=== PATIENT | female | born 2005 | race Caucasian/White ===

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

== ENCOUNTER 2023-03-26 18:07 | Emergency (ER) | payer SELFPAY ==
[2023-03-26 18:19] VITALS: BP 135/81; PULSE 109; RESP 16; TEMP 36.9; O2SAT 97; BMI 37.5
--- NOTE | 2023-03-26 18:44 | XRR_ITS ---
PROCEDURE INFORMATION: Exam: XR Chest Exam date and time: 03/26/2023 7:50 PM Age: 17 years old Clinical indication: Pain; Chest pressure; Additional info: Chest pain TECHNIQUE: Imaging protocol: Radiologic exam of the chest. Views: 1 view. COMPARISON: No relevant prior studies available. FINDINGS: Lungs: Unremarkable. No consolidation. Pleural spaces: Unremarkable. No pleural effusion. No pneumothorax. Heart/Mediastinum: Unremarkable. No cardiomegaly. Bones/joints: Unremarkable. XR/XR chest 1V portable [id number] IMPRESSION: No acute findings.
--- NOTE | 2023-03-26 18:44 | ECG_ITS ---
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 Measurements Intervals [place] Rate: 110 P: 21 NC: 143 QRS: 64 QRSD: 93 T: -6 QT: 335 QTc: 454 Interpretive Statements SINUS TACHYCARDIA NONSPECIFIC T-WAVE ABNORMALITY No previous ECG available for comparison Electronically Signed On 03-26-2023 19:06:15 PNEUMATIC TUBE OPERATOR by Mary Gonzalez M.D. [id number]
[2023-03-26 19:17] LABS: Basophils # 0.1 10^3/uL (0.0-0.1); Basophils % 0.5 %; Eosinophils # 0.3 10^3/uL (0.0-0.8); Eosinophils % 2.4 %; Hematocrit 44.9 % (36-47); Lymphocytes # 3.3 10^3/uL (1.5-6.5); Lymphocytes % 25.5 %; Mean Corpuscular HGB Conc 31.6 g/dL (30-55); Mean Corpuscular Volume 82.2 fl (85-98); Monocytes % 7.6 %; Neutrophils # 8.33 10^3/uL (1.8-8.0); Neutrophils % 63.7 %; Nucleated Red Blood Cells % 0 %; Platelet Count 465 10^3/cmm (157-399); Red Blood Count 5.46 10^6/uL (3.85-5.65); Red Cell Distribution Width 13.8 % (12.1-15.1); White Blood Count 13.08 10^3/uL (4.5-13.0)
[2023-03-26 19:30] LABS: Troponin(5th) Baseline < 6 ng/L (0-10)
[2023-03-26 19:39] LABS: Alanine Aminotransferase 21 U/L (0-33); Albumin Level 4.3 g/dL (3.5-5.2); Alkaline Phosphatase 119 U/L (35-105); Anion Gap 19.2 (5-19); Aspartate Amino Transferase 22 U/L (0-32); Blood Urea Nitrogen 7 mg/dL (6-20); Calcium 9.6 mg/dL (8.5-10.5); Carbon Dioxide 19 mmol/L (22-29); Chloride 103 mmol/L (98-107); Globulin 3.8 g/dL (1.3-4.6); Glomerular Filtration Rate 128.8 mL/min (90-130); Glucose 83 mg/dL (65-115); Osmolality Calculated 281 mOsm/kg (285-295); Potassium 4.2 mmol/L (3.5-5.1); Sodium 137 mmol/L (136-145); Total Bilirubin 0.3 mg/dL (0.15-1.2); Total Protein 8.1 g/dL (6.6-8.7)
--- NOTE | 2023-03-26 19:44 | PC.NURSE ---
Initial EKG done in triage.
[2023-03-26 19:52] VITALS: BP 139/98; PULSE 90; RESP 16; O2SAT 97
--- NOTE | 2023-03-26 19:52 | PC.NURSE ---
RN ASSUMED CARE OF PATIENT AT THIS TIME
--- NOTE | 2023-03-26 20:03 | W.ED.CHESTPA ---
HPI - Chest Pain General: Chief Complaint: Chest Pain Stated Complaint: Chest Pains\ Time Seen by Provider: 03/26/23 19:17 History of Present Illness: Patient presents to the ER with substernal nonradiating chest pain every time she take a big deep breath. This all started when she was pushing her car while is out of gas. When she took a big deep breath it felt like she was breathing and glass. Patient states she has had these episodes before. Patient says she denies any cardiac or respiratory history. Patient says she is not having either 1 of these episodes now and is currently back to normal. Review of Systems General: Reports: 10 or more systems reviewed and unremarkable except in HPI and below Physical Exam Const: COMMON NORMALS: no acute distress, average body habitus, patient oriented x3, no limitations, healthy appearing, alert and well nourished HENMT: COMMON NORMALS: normocephalic, atraumatic, hearing grossly normal bilaterally, external ears normal, Normal external nose present, moist oral mucous membranes and oropharynx normal HEAD & SCALP: normocephalic and atraumatic NOSE: Normal external nose present EXTERNAL EAR: Yes external ears normal Neck/C-Spine: COMMON NORMALS: full ROM, no lymphadenopathy, supple, no meningeal signs, no JVD and Thyroid normal THYROID: Thyroid normal Chest: COMMONS NORMALS: normal inspection of the chest and normal palpation of entire chest wall Resp: COMMON NORMALS: normal respiratory effort, No retractions, No use of accessory muscles and clear to auscultation bilaterally AUSCULTATION: clear to auscultation bilaterally Cardio: COMMON NORMALS: no JVD Neuro: COMMON NORMALS: patient oriented x3 SENSORIUM/ORIENTATION: Yes alert MENINGEAL SIGNS: Yes no meningeal signs Course Vital Signs: Vital signs: Vital Signs Temperature 98.4 F 03/26/23 18:19 Pulse Rate 87 03/26/23 20:06 Respiratory Rate 20 H 03/26/23 20:06 Blood Pressure 144/78 03/26/23 20:06 Pulse Oximetry 96 03/26/23 20:06 Oxygen Delivery Me thod Room Air 03/26/23 19:52 MDM - Chest Pain Medical Decision Making Patient presents to the ER with complaining of chest pain and when she breathes and feels like she is breathing and glass. Patient was worked up in a standard chest pain fashion with serial EKGs and enzymes patient was pain-free during her entire stay here her work-up was essentially benign. Patient be discharged with a diagnosis of noncardiac chest pain. Differential Diagnosis Unlikely acute massive pulmonary embolism, acute respiratory failure, acute myocardial infarction, cardiac arrest or sudden cardiac Medical Records I reviewed the patient's medical records. Lab Data I reviewed the patient's lab results. 03/26/23 18:59 03/26/23 18:59 Radiology Impressions Chest X-Ray 03/26/23 18:44 IMPRESSION: No acute findings. Laboratory Results WBC 13.08 10^3/uL (4.5-13.0) H 03/26/23 18:59 RBC 5.46 10^6/uL (3.85-5.65) 03/26/23 18:59 Hgb 14.20 g/dL (12.4-14.8) 03/26/23 18:59 Hct 44.9 % (36-47) 03/26/23 18:59 MCV 82.2 fl (85-98) L 03/26/23 18:59 MCH 26.0 pg (27-33) L 03/26/23 18:59 MCHC 31.6 g/dL (30-55) 03/26/23 18:59 RDW 13.8 % (12.1-15.1) 03/26/23 18:59 Plt Count 465 10^3/cmm (157-399) H 03/26/23 18:59 MPV 10.0 fL (7.4-10.4) 03/26/23 18:59 Neut % (Auto) 63.7 % 03/26/23 18:59 Lymph % (Auto) 25.5 % 03/26/23 18:59 [place] % (Auto) 7.6 % 03/26/23 18:59 Eos % (Auto) 2.4 % 03/26/23 18:59 Baso % (Auto) 0.5 % 03/26/23 18:59 Neut # (Auto) 8.33 10^3/uL (1.8-8.0) H 03/26/23 18:59 Lymph # (Auto) 3.3 10^3/uL (1.5-6.5) 03/26/23 18:59 [place] # (Auto) 1.0 10^3/uL (0.2-0.9) H 03/26/23 18:59 Eos # (Auto) 0.3 10^3/uL (0.0-0.8) 03/26/23 18:59 Baso # (Auto) 0.1 10^3/uL (0.0-0.1) 03/26/23 18:59 Nucleated RBC % (auto) 0 % 03/26/23 18:59 Nucleated RBCs # 0.0 /100WBC 03/26/23 18:59 Sodium 137 mmol/L (136-145) 03/26/23 18:59 Potassium 4.2 mmol/L (3.5-5.1) 03/26/23 18:59 Chloride 103 mmol/L (98-107) 03/26/23 18:59 Carbon Dioxide 19 mmol/L (22-29) L 03/26/23 18:59 Anion Gap 19.2 (5-19) H 03/26/23 18:59 BUN 7 mg/dL (6-20) 03/26/23 18:59 Creatinine 0.6 mg/dL (0.5-0.9) 03/26/23 18:59 GFR Calculation 128.8 mL/min (90-130) 03/26/23 18:59 Glucose 83 mg/dL (65-115) 03/26/23 18:59 Calculated Osmolality 281 mOsm/kg (285-295) L 03/26/23 18:59 Calcium 9.6 mg/dL (8.5-10.5) 03/26/23 18:59 Total Bilirubin 0.3 mg/dL (0.15-1.2) 03/26/23 18:59 AST 22 U/L (0-32) 03/26/23 18:59 ALT 21 U/L (0-33) 03/26/23 18:59 Alkaline Phosphatase 119 U/L (35-105) H 03/26/23 18:59 Troponin T Baseline < 6 ng/L (0-10) 03/26/23 18:59 Troponin T 120 Minute 7.20 ng/L (0-10) 03/26/23 20:48 Delta Troponin T 1.2 ABS# (0-10) 03/26/23 20:48 Total Protein 8.1 g/dL (6.6-8.7) 03/26/23 18:59 Albumin 4.3 g/dL (3.5-5.2) 03/26/23 18:59 Globulin 3.8 g/dL (1.3-4.6) 03/26/23 18:59 All radiology interpretation(s) finalized by discharge EKG Data EKG 1: I personally reviewed and interpreted this EKG as follows: EKG interpretation date: 03/26/23 EKG interpretation time: 18:14 Prior EKG tracings: not available for review Interpretation: EKG shows ventricular rate 110 bpm, [place] interval 143, QRS duration 93, QTc of 400, sinus tachycardia, nonspecific T wave abnormality EKG 2: I personally reviewed and interpreted this EKG as follows: EKG interpretation date: 03/26/23 EKG interpretation time: 20:45 Prior EKG tracings: available for review Interpretation: EKG showed ventricular rate 84 beats minute, [place] interval 116, QRS duration 91, QTc of 401, sinus rhythm with short [place] interval Discharge Plan Discharge Patient Disposition: Home Clinical Impression: Chest pain, non-cardiac Condition: Stable Discharge Orders: Discharge ED (Routine); Ordered 03/26/23 Ordered By: Omar Tijerina Referrals: Umu Melendrez [Primary Care Provider] - 1 week Patient Instructions: Chest Pain - Noncardiac Activity Restrictions/Additional Instructions: Please follow-up with your family practice physician in the next 7 to 10 days for further evaluation and treatment. If your pain worsens or returns please return to the ER for further evaluation. Coding Level of Care Code ED Billing Checker for Nelsy Guevara
[2023-03-26 20:06] VITALS: BP 144/78; PULSE 87; RESP 20; O2SAT 96
--- NOTE | 2023-03-26 20:45 | ECG_ITS ---
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 Measurements Intervals [place] Rate: 84 P: 16 [place]: 116 QRS: 69 QRSD: 91 T: 15 QT: 360 QTc: 426 Interpretive Statements SINUS RHYTHM Normal ECG Compared to ECG 03/26/2023 18:14:05 Heart rate is slower Electronically Signed On 03-27-2023 14:59:21 SIGN LETTERER by Joshua Mckeon M.D. [id number]
[2023-03-26 21:37] LABS: Troponin 5 2HR Delta 1.2 ABS# (0-10)
[2023-03-26 21:53] VITALS: BP 118/88; PULSE 92; RESP 12; O2SAT 95
== END 2023-03-26 21:55 | disposition home or self-care (01) ==
PROVIDERS: Emergency Provider Emergency Medicine; PCP Nurse Practitioner Family
DX: R07.89 Other chest pain (principal)
CPT/HCPCS: 36415; 71045; 80053; 84484; 85025; 93005; 93010; 99285